=== PATIENT | female | born 2000 | race Hispanic/Latino ===

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

== ENCOUNTER 2020-06-02 02:13 | Emergency (ER) | payer SELFPAY ==
[~2020-06-02] VITALS: Ht 157.5 cm; Wt 70.3 kg
--- NOTE | 2020-06-02 02:20 | NUR ---
Spoke to poison control at this time. Recommendation of CBC, CMP , UA, UDS, UPT at this time. Poison control also recommends 0400 aspirin level, salicylate and tylenol level. RENETTA NUGENT notified. Addendum: 06/02/20 at 0225 by [email or web address] Poison control does not reccomend activated charcoal at this time due to 13 baby aspirins being in therapeutic level. RENETTA NUGENT notified.
[2020-06-02 02:25] LABS: BASOPHILS # (AUTO) 0.1 (0.0-0.1); BASOPHILS % 0.4 % (0.0-1.0); HEMATOCRIT 40.6 % (34.2-44.1); HEMOGLOBIN 13.3 g/dL (12.0-16.0); LYMPHOCYTES # (AUTO) 1.8 (1.0-3.2); LYMPHOCYTES % 12.2 % (18.0-39.1); MEAN CORPUSCULAR HEMOGLOBIN 28.7 pg (28-32); MEAN CORPUSCULAR HGB CONC 32.8 g/dL (31-35); MEAN CORPUSCULAR VOLUME 87.5 fL (81-99); MONOCYTES % 6.6 % (4.4-11.3); NEUTROPHILS # (AUTO) 11.7 (2.1-6.9); NEUTROPHILS % 80.3 % (38.7-80.0); PLATELET COUNT 291 x10e3/uL (140-360); RED BLOOD COUNT 4.64 x10e6/uL (3.6-5.1); RED CELL DISTRIBUTION WIDTH 12.8 % (11.7-14.4)
--- NOTE | 2020-06-02 02:33 | NUR ---
OFFICER Alice SINGLETARY WITH [facility] DEPARTMENT PROVIDED E.D.O. FOR PT. E.D.O. FORM ATTACHED TO PT'S CHART.
--- NOTE | 2020-06-02 02:36 | Emergency Department Note ---
History of Present Illnes History of Present Illness Chief Complaint: Psychiatric History of Present Illness This is a 19 year old female arrives to the ED after a suicide attempt with 13 baby aspirin at around midnight. Patient proceeded to text her friend about her desires to end her life. Friend contacted patient's mother and patient was subsequently brought to the emergency department. Onset (how long ago): hour(s) Severity: mild Onset quality: sudden Duration (how long): day(s) Timing of current episode: constant Chronicity: new (MIRYAM NAVARRO DO) Past Medical/Family History Physician Review I have reviewed the patient's past medical and family history. Any updates have been documented here. (MIRYAM NAVARRO DO) Past Medical History Recent Fever: No Clinical Suspicion of Infectio: No New/Unexplained Change in Ment: No Past Medical History: None Past Surgical History: None (MIRYAM NAVARRO, ) Social History Smoking Cessation: Never Smoker Alcohol Use: Social Any Illegal Drug Use: No (MIRYAM NAVARRO, ) Other Last Tetanus: UTD (MIRYAM NAVARRO DO) Review of Systems Review of Systems Constitutional: Reports no symptoms EENTM: Reports no symptoms Cardiovascular: Reports no symptoms Respiratory: Reports no symptoms Gastrointestinal: Reports no symptoms Genitourinary: Reports no symptoms Musculoskeletal: Reports no symptoms Integumentary: Reports no symptoms Neurological: Reports no symptoms Psychological: Reports as per HPI, Reports anxiety, Reports depressed, Reports emotional problems Endocrine: Reports no symptoms Hematological/Lymphatic: Reports no symptoms (MIRYAM NAVARRO, ) Physical Exam Related Data Allergies: Coded Allergies: No Known Allergies (Unverified , 03/12/18) Vital signs reviewed: Yes (MIRYAM NAVARRO, ) Physical Exam CONSTITUTIONAL Constitutional: Present well-developed, Present well-nourished HENT HENT: Present normocephalic, Present atraumatic, Present oropharynx clear/moist, Present nose normal HENT L/R: Present left ext ear normal, Present right ext ear normal EYES Eyes: Reports PERRL, Reports conjunctivae normal NECK Neck: Present ROM normal PULMONARY Pulmonary: Present effort normal, Present breath sounds normal CARDIOVASCULAR Cardiovascular: Present regular rhythm, Present heart sounds normal, Present capillary refill normal, Present normal rate GASTROINTESTINAL Abdominal: Present soft, Present nontender, Present bowel sounds normal GENITOURINARY Genitourinary: Present exam deferred SKIN Skin: Present warm, Present dry MUSCULOSKELETAL Musculoskeletal: Present ROM normal NEUROLOGICAL Neurological: Present alert, Present oriented x 3, Present no gross motor or sensory deficits PSYCHOLOGICAL Psychological: Absent mood/affect normal, Absent judgement normal Exam - additional comments Flat affect (MIRYAM NAVARRO DO) Results Laboratory Result Diagram: 06/02/20 0216 Laboratory Laboratory Tests Test 06/02/20 02:28 06/02/20 02:16 06/02/20 00:00 White Blood Count 14.59 x10e3/uL (4.8-10.8) Red Blood Count 4.64 x10e6/uL (3.6-5.1) Hemoglobin 13.3 g/dL (12.0-16.0) Hematocrit 40.6 % (34.2-44.1) Mean Corpuscular Volume 87.5 fL (81-99) Mean Corpuscular Hemoglobin 28.7 pg (28-32) Mean Corpuscular Hemoglobin Concent 32.8 g/dL (31-35) Red Cell Distribution Width 12.8 % (11.7-14.4) Platelet Count 291 x10e3/uL (140-360) Neutrophils (%) (Auto) 80.3 % (38.7-80.0) Lymphocytes (%) (Auto) 12.2 % (18.0-39.1) Monocytes (%) (Auto) 6.6 % (4.4-11.3) Eosinophils (%) (Auto) 0.0 % (0.0-6.0) Basophils (%) (Auto) 0.4 % (0.0-1.0) Neutrophils # (Auto) 11.7 (2.1-6.9) Lymphocytes # (Auto) 1.8 (1.0-3.2) Monocytes # (Auto) 1.0 (0.2-0.8) Eosinophils # (Auto) 0.0 (0.0-0.4) Basophils # (Auto) 0.1 (0.0-0.1) Absolute Immature Granulocyte (auto 0.08 x10e3/uL (0-0.1) Lab results reviewed: Yes (MIRYAM NAVARRO DO) Procedures 12 Lead ECG Interpretation ECG Interpretation : ECG: ECG 1 Butcher: Interpreted by ED physician Rhythm: sinus tachycardia Rate: normal QRS axis: normal ST segments normal: Yes T waves normal: Yes Clinical Impression: normal ECG (MIRYAM NAVARRO DO) Assessment & Plan Medical Decision Making MDM 19-year-old female arrived to the ED after attempted suicide, patient required hospitalization. Sign out given to Dr. Jose to do a doc to doc at [facility] when a bed is available (MIRYAM NAVARRO DO) MDM PT SUICIDAL IDEATIONS NOW, MARLENE CARCAMO WITH MAT CAME AND EVALUATED PT AND STATES SHE IS CLEAR TO BE DISCHARGED AND TO HAVE OUTPATIENT TREATMENT, MAT TEAM PROVIDED RESOURCES TO PATIENT FOR OUT PATIENT TREATMENT. MR CARCAMO IS THE SAME MEMBER OF MAT WHO INITIALLY EVALUATED THE PATIENT. (GM HERNÁNDEZ MD) Assessment & Plan Final Impression: (1) Suicidal behavior with attempted self-injury (2) Salicylate poisoning (MIRYAM NAVARRO DO) Depart Disposition: HOME, SELF-CARE MIRYAM NAVARRO DO Jun 02, 2020 02:36 GM HERNÁNDEZ MD Jun 09, 2020 04:31
[2020-06-02 02:37] LABS: BILIRUBIN,URINE NEGATIVE (NEGATIVE); CLARITY,URINE CLEAR (CLEAR); COLOR,URINE YELLOW (YELLOW); KETONES,URINE 1+ (NEGATIVE); LEUKOCYTE ESTERASE ,URINE NEGATIVE (NEGATIVE); NITRITE,URINE NEGATIVE (NEGATIVE); PROTEIN,URINE DIPSTICK NEGATIVE (NEGATIVE); URINE UROBILINOGEN 0.2 mg/dL (0.2 - 1)
--- NOTE | 2020-06-02 02:41 | NUR ---
PT ENTERED INTO A VERBAL CONTRACT WITH MYSELF, TO NOT HARM HERSELF FOR THE NEXT 12 HOURS.
[2020-06-02 02:47] LABS: BACTERIA,URINE RARE /HPF; EPITHELIAL CELLS,URINE FEW /LPF; RBC,URINE 0-5 /HPF (0-5); WBC,URINE (MAN) 0-5 /HPF (0-5)
--- NOTE | 2020-06-02 02:48 | NUR ---
X8 FACIAL PIERCING REMOVED ALONG WITH X2 BRACELETS AND X1 NECKLACE WITH PT'S DRIVERS LICENSE AND CLOTHES PLACED INTO BELONGINGS BAG. BELONGING BAG PLACED IN NURSES STATION. PT HAS X6 PIERCING THAT ARE UNABLE TO REMOVE.
[2020-06-02 03:05] LABS: ALANINE AMINOTRANSFERASE 17 IU/L (0-55); ALBUMIN 4.3 g/dL (3.5-5.0); ALBUMIN/GLOBULIN RATIO 1.2 (0.8-2.0); ALKALINE PHOSPHATASE 85 IU/L (40-150); ANION GAP 15.2 mmol/L (8-16); BLOOD UREA NITROGEN 17 mg/dL (7-26); BUN/CREATININE RATIO 19 (6-25); CALCIUM 9.3 mg/dL (8.4-10.2); CARBON DIOXIDE 22 mmol/L (22-29); CHLORIDE 104 mmol/L (98-107); CREATININE, SERUM 0.89 mg/dL (0.57-1.11); EST GLOMERULAR FILTRATION RATE > 60 ML/MIN (60-); GLUCOSE 97 mg/dL (74-118); POTASSIUM 3.2 mmol/L (3.5-5.1); SODIUM 138 mmol/L (136-145)
[2020-06-02 03:06] LABS: SALICYLATE < 5.0 mg/dL (0-30)
--- NOTE | 2020-06-02 03:16 | NUR ---
MAT TEAM CALLED AT THIS TIME. SPOKE WITH CHARANJIT WITH MAT TEAM. WAITING FOR CALL BACK FOR ETA.
--- NOTE | 2020-06-02 05:18 | NUR ---
Patient resting with no distress noted at this time. RR even and unlabored.
--- NOTE | 2020-06-02 05:25 | NUR ---
MAT team here to assess patient.
--- NOTE | 2020-06-02 06:06 | NUR ---
IV dc'd at this time.
--- NOTE | 2020-06-02 06:18 | NUR ---
MAT team reccomends involuntary inpatient to [facility] at this time.
--- NOTE | 2020-06-02 07:00 | NUR ---
Report to NAOMI Tidwell.
--- NOTE | 2020-06-02 07:01 | NUR ---
received report from off going nurse. patient in room in bed, resting quietly. no s/s of acute distress. resp even and non labored. MAT team here to see patient. patient with SAPNA. will continue to monitor.
[2020-06-02] MEDS ORDERED: SODIUM CHLORIDE 0.9% 1000ML 1,000 ML IV STA (07:13)
--- NOTE | 2020-06-02 08:05 | NUR ---
PATIENT HAS AM MEAL VALENTE AT BEDSIDE. PT DECLINED FOOD AT THIS TIME.
--- NOTE | 2020-06-02 09:00 | NUR ---
PATIENT IN ROOM IN BED. RESTING QUIETLY WITH EYES CLOSED. EASILY ARROUSED. NO C/O PAIN, NO C/O SOB. WILL CONTINUE TO MONITOR. 1:1 SITTER AT BEDSIDE
--- NOTE | 2020-06-02 11:12 | NUR ---
PATIENT IN ROOM IN BED. RESTING QUIETLY WITH EYES CLOSED. EASILY ARROUSED. NO C/O PAIN, NO C/O SOB. WILL CONTINUE TO MONITOR. 1:1 SITTER AT BEDSIDE
--- NOTE | 2020-06-02 12:18 | NUR ---
PATIENT SITTING UP AT BEDSIDE TO EAT NOON MEAL
--- NOTE | 2020-06-02 14:18 | NUR ---
Ally Pennington-social services director contacted regarding pt. Stated will reach out to MAT to inquire if they have a facility that is accepting covid positive patients.
--- NOTE | 2020-06-02 14:29 | NUR ---
JUST NOTIFIED ABOUT PT IN ED, CALLED AND SPOKE WITH NICOLLE AT THE MAT TEAM CALL CENTER [phone] WHOM STATES SHE HAS THE PT SET UP FOR A OPC FIRST THING IN THE MORNING. [facility] IS THE ONLY FACILITY TAKING COVID POSITIVE PTS AND THE [facility] ARE DOING OPC VIA EMAIL DUE TO COVID. WILL CALL AND GET UPDATE IN AM ON STATUS OF PT IN ED.
--- NOTE | 2020-06-02 14:42 | NUR ---
PATIENT IN ROOM IN BED. RESTING QUIETLY WITH EYES CLOSED. EASILY ARROUSED. NO C/O PAIN, NO C/O SOB. WILL CONTINUE TO MONITOR. 1:1 SITTER AT BEDSIDE
--- NOTE | 2020-06-02 16:14 | NUR ---
PATIENT IN ROOM IN BED. RESTING QUIETLY WITH EYES CLOSED. EASILY ARROUSED. NO C/O PAIN, NO C/O SOB. WILL CONTINUE TO MONITOR. 1:1 SITTER AT BEDSIDE
--- NOTE | 2020-06-02 19:32 | NUR ---
Requested infromation faxed to MAT team at this time.
--- NOTE | 2020-06-02 21:14 | NUR ---
Patient resting with no distress noted. RR even and unlabored. Sitter at bedside.
--- NOTE | 2020-06-03 07:05 | NUR ---
Report to ZEO Rosenberg
--- NOTE | 2020-06-03 08:09 | NUR ---
pt sleeping, no distress noted. sitter in room with door open
--- NOTE | 2020-06-03 08:40 | NUR ---
talked with angela ambrocio regarding disposition. currently mat team is trying to get pt to [facility]. gold pending in court once pt is accepted by [facility].
--- NOTE | 2020-06-03 11:41 | NUR ---
resting without incidence
--- NOTE | 2020-06-03 12:32 | NUR ---
SPOKE WITH NITIN YUN REGARDING STATUS. STATES SHE WILL CALL [facility] AGAIN. STATES LAST UPDATE WAS "WE'RE WAITING." NO SAPNA ISSUED TO [facility] AT THIS TIME. SITTER ONE TO ONE REMAINS. LUNCH TRAY GIVEN TO PT
--- NOTE | 2020-06-03 12:39 | NUR ---
CALLED MAT TEAM SPOKE WITH NICOLLE, SHE STATES THE PT IS NONFUNDED SO WILL HAVE TO GO TO [facility] AND IS ON WAIT LIST, THEY HAVE NOT ACCEPTED HER BECAUSE THEY DO NOT HAVE A BED, THEY WILL NOT GET A WARRANT UNTIL THEY GET THE BED. ALL THEY CAN DO IS CALL AFTER LUNCH CALL AND CHECK TO SEE IF HAS BEEN ACCEPTED, WILL CONTINUE TO MONITOR UNTIL ACCEPTED.
--- NOTE | 2020-06-03 14:28 | NUR ---
spoke with meseret from mat team (twice). per meseret, she spoke with rhonda (who assessed pt at 5 am this morning) and rhonda states pt told him her attempt was intentional and is suicidal and has no resources and wants pt under gold and does not feel this pt is able to do a contract for safety at this time. notified danny harry and called jimbo frankel to update.
--- NOTE | 2020-06-03 14:59 | NUR ---
UPDATED Odalys TAVERAS AND HARRISON KNOWLES RN.
--- NOTE | 2020-06-03 18:40 | NUR ---
REMAINS ONE TO ONE SITTER. CLOSE OBS. LAST UPDATE PER HARRISON, ER [facility]. HOLD PT IN ER. ONE LIST FOR [id number] AND ANY ER PT'S THEY MAY HAVE FIRST. MAY TAKE TIL NEXT MONDAY FOR ANY PLACEMENT. PER MAT TEAM, PT NEEDS SAPNA AND WILL NOT DO SAFETY CONTRACT AT THIS TIME. WILL CONTINUE TO MONITOR PT.
--- NOTE | 2020-06-03 19:02 | NUR ---
AAOX3. NO DISTRESS NOTED. RESP EVEN AND UNLABORED ON RA. DENIES PAIN OR DISCOMFORT. 1 TO 1 SITTER AT BEDSIDE.
--- NOTE | 2020-06-04 06:00 | NUR ---
PT SLEEPING A THIS TIME. NO DISTRESS NOTED. RESP EVEN AND UNLABORED ON RA. 1 TO 1 SITTER AT BEDSIDE.
--- NOTE | 2020-06-04 16:47 | NUR ---
PATIENT ALERT AND ORIENTED, CONVERSING FREELY, PLEASANT AND DENIES PAIN OR DISCOMFORT. SITTING UP AT BEDSIDE EATING FOOD THAT WAS BROUGHT IN BY FAMILY. VITAL SIGNS STABLE.
--- NOTE | 2020-06-04 19:30 | NUR ---
PT RESTING QUIETLY IN BED. NO DISTRESS NOTED. RESP EVEN AND UNLABORED ON RA. 1 TO 1 SITTER AT BEDSIDE.
--- NOTE | 2020-06-04 21:30 | NUR ---
PT ALLOWED TO SHOWER C SITTER TO MONITOR. NEW PAPER SCRUBS PROVIDED. LINENS ON STRETCHER CHANGED.
--- NOTE | 2020-06-05 03:00 | NUR ---
PT SLEEPING IN PRONE POSITION AT THIS TIME. NO DISTRESS NOTED. RESP EVEN AND UNLABORED ON RA. 1 TO 1 SITTER REMAINS AT BEDSIDE.
--- NOTE | 2020-06-05 04:50 | NUR ---
CALL RC'D FROM [facility] NURSE THAT NURSE IRVING AT [facility] TO JIM NUGENT FOR DR TO
--- NOTE | 2020-06-05 08:24 | NUR ---
CALLED MAT TEAM TO GET UPDATE, THEY ARE LOGGED AT PENDING MD TO MD, ASKED THEM TO CALL AND GET UPDATE AND PLEASE RETURN MY CALL.
--- NOTE | 2020-06-05 19:07 | NUR ---
Patient resting with no distress noted at this time. RR even and unlabored.
--- NOTE | 2020-06-06 06:31 | NUR ---
Patient resting with no distress noted. RR even and unlabored. Sitter remains at bedside.
--- NOTE | 2020-06-06 07:15 | NUR ---
Report to ZOE Valencia
--- NOTE | 2020-06-08 00:04 | NUR ---
Patient resting with no distress noted. RR even and unlabored. Sitter remains at bedside. Will continue to monitor patient.
--- NOTE | 2020-06-08 07:00 | NUR ---
received report from off going nurse. patient in room in bed resting quietly with eyes closed. arroused easily. 1:1 sitter at bedside.
--- NOTE | 2020-06-08 12:40 | NUR ---
CALLED MAT TEAM TO GET UPDATE STILL PENDING, SAPNA IN PLACE, PT STAY IN PLACE UNTIL ACCEPTED AT [facility]
--- NOTE | 2020-06-08 19:06 | NUR ---
recieved report, sitter at bedside, patient in bed sleeping, easily arousable, all suicidal precautions are in place
--- NOTE | 2020-06-09 04:11 | NUR ---
MAT TEAM HERE RE-EVALUATING PATIENT
--- NOTE | 2020-06-09 04:35 | NUR ---
MARLENE, RN AT BEDSIDE TO REASSESS PTS STATUS, SPOKE TO ER MD; FOR HAS BEEN APPROVED FOR OUTPATIENT THERAPY; MARLENE RN TO PROVIDE RESOURCES FOR PATIENT AT THIS VERNA, PT REMAINS AAOX3, DENIES ANY SUICIDAL OR HOMICIDAL IDEATION; V/S/S
[2020-06-09 05:57] VITALS: BP 110/74
--- NOTE | 2020-06-09 06:25 | NUR ---
PATIENTS BELONGINGS WERE NOT FOUND, PATIENT STATES SHE WISHES TO GO HOME AND WILL CALL THIS ED LATER ON TODAY TO FIND BELONGINGS UPDATE. JESUS-SECURITY INFORMED.
--- NOTE | 2020-06-09 06:31 | NUR ---
JEAN- DIGESTION OPERATOR NOTIFIED OF PATIENTS BELONGINGS MISSING.
== END 2020-06-09 06:35 | disposition home or self-care (01) ==
LOC: ER 02:30
DX: T14.91XA Suicide attempt, initial encounter (principal); T39.012A Poisoning by aspirin, intentional self-harm, initial encounter; F32.9 Major depressive disorder, single episode, unspecified; F41.9 Anxiety disorder, unspecified
CPT/HCPCS: 36415; 80053; 80329; 81001; 84702; 85025; 93005; 99284; U0002